=== PATIENT | female | born 1980 | race African-American/Black ===

== ENCOUNTER 2023-03-10 06:31 | Emergency (ER) | payer BC ==
[~2023-03-10] VITALS: Ht 170.2 cm; Wt 96.0 kg
[~2023-03-10 06:31] MED LIST: IBUP-2029 MT; METH-653 MT
[2023-03-10 06:36] VITALS: O2SAT 99
[2023-03-10 08:53] LABS: BASOPHILS % 1.1 % (0.0-2.0); DIFFERENTIAL COMMENT 0; EOSINOPHILS % 3.2 % (0.0-5.0); HEMATOCRIT. 41.9 % (36.0-48.0); HEMOGLOBIN. 14.6 g/dL (12.0-16.0); LYMPHOCYTES % 13.6 % (20.0-50.0); MEAN CORPUSCULAR HEMOGLOBIN 29.4 pg (28.0-32.0); MEAN CORPUSCULAR HGB CONC 34.8 g/dL (31.0-37.0); MEAN CORPUSCULAR VOLUME 84.3 fL (81.0-99.0); MONOCYTES % 8.8 % (2.0-8.0); NEUTROPHILS % 73.3 % (40.0-76.0); PLATELET 526 x1000/uL (130-400); RED BLOOD CELL COUNT 4.97 mill/uL (4.2-5.4); RED CELL DISTRIBUTION WIDTH 16.1 % (11.6-14.6); WHITE BLOOD COUNT 7.3 x1000/uL (4.5-11.0)
[2023-03-10 09:05] LABS: HCG SCREEN NEGATIVE
[2023-03-10 10:20] LABS: ALANINE AMINOTRANSFERASE 25 IU/L (10-49); ALBUMIN 4.2 g/dL (3.2-4.8); BILIRUBIN TOTAL 0.5 mg/dL (0.1-1.0); CALCIUM 8.8 mg/dL (8.7-10.4); CARBON DIOXIDE 25 mEq/L (21-32); CHLORIDE 107 mEq/L (98-107); CREATININE 0.6 mg/dL (0.6-1.0); GLUCOSE 117 mg/dL (70-105); POTASSIUM 3.9 mEq/L (3.5-5.1); PROTEIN TOTAL 7.1 g/dL (6.0-8.3); SODIUM 141 mEq/L (136-145)
[2023-03-10 10:34] LABS: UREA NITROGEN BLOOD < 5 mg/dL (9-23)
[2023-03-10] MEDS ORDERED: FLUT9.9S BOTHNSTRLS (11:30)
[2023-03-10 11:38] VITALS: BP 128/82; PULSE 82; RESP 16; TEMP 98.1
[2023-03-10 13:20] LABS: ASPARTATE AMINOTRANSFERASE 24 IU/L (<34)
== END 2023-03-10 11:39 | disposition home or self-care (01) ==
LOC: ER 06:31
DX: B34.9 Viral infection, unspecified (principal); Z20.822 Contact with and (suspected) exposure to COVID-19
CPT/HCPCS: 99284; 71046; 87426; 80053; 81025; 84703; 85025; 87804 ×2; 36415; C9803

== ENCOUNTER 2023-08-25 09:53 | Emergency (ER) | payer BC ==
[~2023-08-25] VITALS: Ht 170.2 cm; Wt 82.0 kg
[~2023-08-25 09:53] MED LIST changes: +FLUT9.9S BOTHNSTRLS
[2023-08-25 09:56] VITALS: BP 153/100; PULSE 89; RESP 16; TEMP 98.4; O2SAT 98
[2023-08-25 11:10] LABS: CLARITY URINE CLOUDY (CLEAR); COLOR URINE YELLOW (YELLOW); GLUCOSE URINE NEGATIVE (NEGATIVE); KETONES URINE NEGATIVE (NEGATIVE); LEUKOCYTE ESTERASE URINE TRACE (NEGATIVE); NITRITE URINE NEGATIVE (NEGATIVE); OCCULT BLOOD URINE NEGATIVE (NEGATIVE); PROTEIN URINE NEGATIVE (NEGATIVE); SPECIFIC GRAVITY URINE 1.025 (1.005-1.030); UROBILINOGEN URINE 0.2 E.U./dL (0.2-1.0)
[2023-08-25 11:45] LABS: SQUAMOUS EPITHELIAL CELL URINE 3+ /lpf (RARE/1+)
[2023-08-25 11:46] LABS: MUCUS URINE 2+ /lpf (< = 2+)
[2023-08-25 11:47] LABS: RBC URINE 0-2 /hpf (0-2); WBC URINE 0-2 /hpf (0-2)
[2023-08-25 11:48] LABS: BACTERIA URINE 2+
[2023-08-25] MEDS ORDERED: SULF1TAB48 MT (13:01)
== END 2023-08-25 14:36 | disposition home or self-care (01) ==
LOC: ER 09:53
DX: N39.0 Urinary tract infection, site not specified (principal); D64.9 Anemia, unspecified; Z98.890 Other specified postprocedural states
CPT/HCPCS: 81003; 81025; 99283

== ENCOUNTER 2023-10-17 07:48 | Emergency (ER) | payer BC ==
[~2023-10-17] VITALS: Ht 170.2 cm; Wt 81.6 kg
[~2023-10-17 07:48] MED LIST changes: +SULF1TAB48 MT
[2023-10-17 07:56] VITALS: O2SAT 96
[2023-10-17] MEDS ORDERED: PSEU-207 MT (08:56)
[2023-10-17] MEDS: ACETAMINOPHEN 325MG TABLET PO ONE (09:20)
[2023-10-17 11:12] VITALS: BP 140/88; PULSE 90; RESP 16; TEMP 99
== END 2023-10-17 11:12 | disposition home or self-care (01) ==
LOC: ER 07:48
DX: U07.1 COVID-19 (principal); D64.9 Anemia, unspecified; Z98.890 Other specified postprocedural states
CPT/HCPCS: 71045; 87426; 99284